=== PATIENT | female | born 1995 | race Two or more races ===

== ENCOUNTER → 2018-06-12 | Day surgery (SDC) | payer OTHER ==
[~2018-06-12] MED LIST: LIDOCAINE 1% INJ-PF (10 MG/ML) 30 ML SDV ONE
--- NOTE | 2018-06-12 15:03 | RADIOLOGY REPORT (SQ) ---
EXAM DESCRIPTION: ARTHRO SHOULDER INJECTION COMPLETED DATE/TIME: 06/12/2018 1:02 pm REASON FOR STUDY: RECURRENT DISLOCATION RIGHT SHOULDER COMPARISON: None. FLUOROSCOPY TIME: 9 seconds 1 digital radiographic images saved to PACS. LIMITATIONS: None. PROCEDURE: Procedure, risks, benefits and alternatives explained to patient who then gave written co nsent. The posterior right glenohumeral joint at the shoulder was marked and a time out was called fo r correct procedure verification. Posterior entry site marked using fluoroscopic guidance. Shoulder prepped and draped using sterile technique. Local anesthesia achieved using 1% lidocaine injection. Hypodermic needle introduced into the joint space under direct fluoroscopic visualization. Non-ioni c contrast instilled to confirm intra-articular position. Dilute gadolinium solution then injected. Needle removed and entry site covered with sterile bandage. No immediate complications noted. TECHNIQUE: Digital images acquired during fluoroscopy and stored on PACS. Patient immediately take n to the MR suite for additional imaging. INJECTION LOCATION: Right posterior glenohumeral joint CONTRAST TYPE AND AMOUNT: 1 mL of Isovue-300 was injected to confirm intra-articular needle placement followed by Prohance/Saline mixture. IMPRESSION: SUCCESSFUL NEEDLE PLACEMENT AND INJECTION FOR RIGHT SHOULDER MR ARTHROGRAM USING POSTERI OR APPROACH. COMMENT: Quality ID [id number]: Final reports for procedures using fluoroscopy that document radiation exp osure indices, or exposure time and number of fluorographic images (if radiation exposure indices are not available) TECHNICAL DOCUMENTATION: JOB ID: [id number] [employer]- All Rights Reserved Reading location - IP/workstation name: [email or web address]
--- NOTE | 2018-06-12 16:05 | RADIOLOGY REPORT (SQ) ---
EXAM DESCRIPTION: MRI RT UPPER JOINT WITH COMPLETED DATE/TIME: 06/12/2018 1:21 pm REASON FOR STUDY: RECURRENT DISLOCATION RIGHT SHOULDER COMPARISON: None. TECHNIQUE: Post arthrogram Right shoulder images acquired and stored on PACS. Multiplanar imaging to include fat sensitive sequences such as T1, water sensitive sequences such as FST2/STIR, cartilage s ensitive sequences such as FSPD/gradient-echo sequences. LIMITATIONS: None. FINDINGS: BONE MARROW AND CORTEX: No marrow signal abnormalities worrisome for acute fracture. A ch ronic appearing Hill-Sachs deformity is present in the right humeral head axial images 7-9. No bony Bankart injury. Small subcortical cyst right humeral head greater tuberosity posterior aspect. JOINT OR BURSAL EFFUSION: Right shoulder joint is well distended with arthrogram contrast. There is no leakage into the subacromial/subdeltoid bursa. No glenohumeral joint loose bodies. GLENO-HUMERAL ARTICULATION: Normal articulation. No subluxation. No cystic change. No osteophytes or cartilage loss. ACROMION AND AC JOINT: Type 1 acromion with mild narrowing of the subacromial space. ROTATOR CUFF AND INTERVAL: No significant tear or signal alteration. No cuff muscle atrophy. No rotator interval tear. No rotator interval thickening to suggest adhesive capsulitis. LABRUM AND BICEPS LABRAL COMPLEX: Intact, without superior labral tear. Intra-articular long-head b iceps tendon normal. Distal biceps in normal location in bicipital groove. REMAINDER OF LABRUM AND IGHL : The anterior inferior labrum is horn, he joint capsule is lifted off o f the anterior scapula and bony glenoid. No Bankart bony fracture. These changes are best shown on axial images 8 through 12. PERIARTICULAR AND ADJACENT SOFT TISSUES: No masses or abnormal nodes. OTHER: No other significant finding. IMPRESSION: Insufficient anterior inferior glenoid labrum [place]-Sachs deformity No rotator cuff tear. TECHNICAL DOCUMENTATION: JOB ID: [id number] [employer]- All Rights Reserved Reading location - IP/workstation name: [email or web address]
== END ==
LOC: RAD 11:54 → EDSTATUS 13:00
PROVIDERS: ATTEND Physician Assistant
DX: M24.411 Recurrent dislocation, right shoulder (principal); M21.821 Other specified acquired deformities of right upper arm
CPT/HCPCS: 73222; 77002; 23350; A9576; J3490